=== PATIENT | male | born 1995 | race Caucasian/White ===

== ENCOUNTER 2018-07-08 12:09 | Emergency (ER) | payer OTHER ==
[2018-07-08] MEDS ORDERED: Ondansetron TAB* 4 MG PO ONE (14:26)
--- NOTE | 2018-07-08 14:47 | ED ---
Head Injury - HPI Summary HPI Summary: Pt. is a 22 y.o female who presents to the ER for evaluation after head injury x 2. Pt. states that last night he was going to visit a friend when he slipped ice, falling backwards, striking posterior head on concrete. Pt. denies LOC. Pt. states he developed a severe head ache and neck pain after. Pt. states today he actually fell again and struck the back of his head again. He denies LOC. Pt. states he did vomit this morning and feels nauseous since. He now c/o diffuse headache, nausea, and light sensitivity. Sxs are moderate in severity. Lights and noise make sxs worse. No other injuries were sustained. He denies numbness, tingling or weakness. Past medical hx of HTN and pt. states he did not take his blood pressure medication today bc he was running late for class. - History Of Current Complaint Chief Complaint: EDHeadInjury Stated Complaint: HEADACHE. FELL, HIT HEAD Time Seen by Provider: 07/08/18 13:40 Hx Obtained From: Patient Pain Intensity: 7 - Allergies/Home Medications Allergies/Adverse Reactions: Allergies Allergy/AdvReac Type Severity Reaction Status Date / Time cephalexin [From Keflex] Allergy Swelling Verified 07/08/18 12:17 Home Medications: Home Medications Albuterol HFA INHALER* [Ventolin HFA Inhaler*] 2 puff INH Q4H PRN 07/08/18 [ History Confirmed 07/08/18] Lisinopril TAB* [Prinivil TAB*] 10 mg PO DAILY 07/08/18 [History Confirmed 07/08] Loratadine/Pseudoephedrine [Claritin-D 24 Hour 10-240 mg] 1 tab PO DAILY [History Confirmed 07/08/18] PMH/Surg Hx/FS Hx/Imm Hx Previously Healthy: Yes Infectious Disease History: No Infectious Disease History: Denies: Traveled Outside the [place] in Last 30 Days - Family History Known Family History: Positive: Non-Contributory - Social History Occupation: Unemployed, Student Lives: Dormitory/Roommates Alcohol Use: Occasionally Substance Use Type: Reports: None Smoking Status (MU): Never Smoked Tobacco Review of Systems Eyes: Negative ENT: Negative Cardiovascular: Negative Respiratory: Negative Gastrointestinal: Negative Positive: Other - neck pain Skin: Negative Positive: Headache. Negative: Weakness, Paresthesia, Numbness, Syncope All Other Systems Reviewed And Are Negative: Yes Physical Exam Triage Information Reviewed: Yes Vital Signs On Initial Exam: Initial Vitals Temp Pulse Resp BP Pulse Ox 98.8 F 90 16 168/124 98 07/08/18 12:13 07/08/18 12:13 07/08/18 12:13 07/08/18 12:13 07/08/18 12:13 Vital Signs Reviewed: Yes Appearance: Positive: Well-Appearing - Pt. sitting on side of bed with lights dime. Appears uncomfortable but nontoxic. Skin: Positive: Warm, Dry Head/Face: Positive: Other - Hematoma noted to right posterior scalp. No break in skin. No ortiz sign or racoon eyes. Eyes: Positive: Normal, EOMI, YANETH, Conjunctiva Clear ENT: Positive: TMs normal Neck: Positive: Supple, Other: - No signficicant midline tenderness. Bilateral lateral pain on palpation. Decreased ROM secondary to pain. Respiratory/Lung Sounds: Positive: Clear to Auscultation, Breath Sounds Present Cardiovascular: Positive: Normal, RRR Musculoskeletal: Positive: Normal, Strength/ROM Intact Neurological: Positive: Normal, Alert, Oriented to Person Place, Time, CN Intact II-III, Normal Gait, Finger to Nose - Normal, Facial Symmetry, Speech Normal. Negative: Slurred Speech, Pronator Drift Present Psychiatric: Positive: Affect/Mood Appropriate - [place] Coma Scale Best Eye Response: 4 - Spontaneous Best Motor Response: 6 - Obeys Commands Best Verbal Response: 5 - Oriented Coma Scale Total: 15 Diagnostics - Vital Signs Vital Signs Temp Pulse Resp BP Pulse Ox 07/08/18 12:13 98.8 F 90 16 168/124 98 - Laboratory Lab Statement: Any lab studies that have been ordered have been reviewed, and results considered in the medical decision making process. Head Injury Course/Dx Course Of Treatment: Patient presenting for evaluation of head injury 2. Has no neurological deficits. Blood pressure is elevated initially at 168/124 and reduced to 162/82. Patient states he did not take his blood pressure medication this morning. Given patient's posterior head injury, vomiting and significant headache we'll obtain CT scan to evaluate for skull fracture, intracranial bleed. Patient also notes ongoing neck pain after fall last night. Will obtain cervical CT to evaluate for potential fx. Patient is given a dose zofran. Brain and cervical spine are negative for acute findings, reading per radiology. Advised patient Tylenol Motrin for pain as directed. Prescription for Zofran given. Excuse for class and for given for a few days. Advised patient to avoid reading, computer use, cellphone use, TV. To follow- up with [facility]. Return to the ER symptoms change or worsen. Patient understands and agrees with plan. - Diagnoses Differential Diagnosis/HQI/PQRI: Cerebral Contusion, Cervical Sprain, Concussion Without LOC, Contusion, Hematoma, Intracranial Bleed, Skull Fracture Provider Diagnoses: Head injury, Concussion, Cervical strain Discharge - Sign-Out/Discharge Documenting (check all that apply): Patient Departure Patient Received Moderate/Deep Sedation with Procedure: No - Discharge Plan Condition: Good Disposition: HOME Prescriptions: Ondansetron TAB* [Zofran 4 MG Tab*] 4 mg PO Q6H PRN #12 tab PRN Reason: Nausea Patient Education Materials: Cervical Strain (ED), Concussion (ED), Head Injury (ED) Forms: *School Release, *Work Release Referrals: [facility] @ [Outside] Additional Instructions: Call the health clinic today to schedule a follow up appointment Take your blood pressure medication as soon as you get home Can take tylenol or motrin for pain as directed Zofran as directed for nausea Avoid reading, tv screens, computers and cellphone screens Return to ER if symptoms change or worsen - Billing Disposition and Condition Condition: GOOD Disposition: Home
[2018-07-08 15:59] VITALS: BP 162/86
== END 2018-07-08 15:59 | disposition home or self-care (01) ==
LOC: ED 12:09
DX: S09.90XA Unspecified injury of head, initial encounter (principal); S06.0X0A Concussion without loss of consciousness, initial encounter; S16.1XXA Strain of muscle, fascia and tendon at neck level, initial encounter; R51 Headache; M54.2 Cervicalgia; W19.XXXA Unspecified fall, initial encounter; Y92.9 Unspecified place or not applicable
CPT/HCPCS: 70450; 72125; 99282; A9270-GY